=== PATIENT | female | born 1965 | race Caucasian/White ===

== ENCOUNTER → 2017-03-20 | Outpatient (CLI) | payer BC ==
[~2017-03-20] MED LIST: BUDE90AE2 IH; CETI-264 PO; LEVO50TA PO; LORA-407 PO; LSNP20T PO; MMT17NA; MONT5TAB PO; OMEP20CA6 PO; PRED20TA PO; SERT50TA2 PO
--- NOTE | 2017-03-20 14:55 | Diagnostic Imaging Report ---
PROCEDURE: CT head without contrast. TECHNIQUE: Multiple contiguous axial images were obtained through the brain without the use of intravenous contrast. Indication: Frontal headache. Comparison: None. Discussion: No intracranial hemorrhage, mass, midline shift, or hydrocephalus. The ventricles and sulci are normal size and configuration for age. The visualized orbits, paranasal sinuses, mastoid air cells, and calvarium are unremarkable. Impression: 1. Negative head CT. No acute paranasal sinus disease identified. Report was called/stat faxed to office of Dr. Toan Stern @ 2:54 PM/malia. Dictated by: Dictated on workstation # [id number]
== END ==
LOC: RAD 12:09
PROVIDERS: ATTEND Family Medicine
DX: R51 Headache (principal)
CPT/HCPCS: 70450